=== PATIENT | female | born 1930 | race Caucasian/White ===

== ENCOUNTER 2017-06-28 13:40 | Emergency (ER) | payer OTHER ==
[~2017-06-28] VITALS: Ht 165.1 cm; Wt 61.2 kg
[~2017-06-28 13:40] MED LIST: APAP500 PO; ARICEPT10 M1 PO; COZAAR 25 MG TA25 M1 PO; FISH OIL 1,2001 EAC4 PO; KEFLEX500 MG PO; ONDANSETRON HCL4 M2 PO; ZOCOR20 MG PO; ZOFRAN ODT4 MG PO; ZOLOFT50 MG PO
[2017-06-28] MEDS ORDERED: ASPIR 8181 M1 PO (13:53)
[2017-06-28] MEDS ORDERED: SYNTHROID50 MCG PO (13:54)
[2017-06-28] MEDS ORDERED: STOOL SOFTENER100 MG PO (13:54)
[2017-06-28 14:17] LABS: HEMATOCRIT 38.5 % (37.0-47.0); HEMOGLOBIN 12.6 gm/dL (12.0-15.0); MCH 27.9 pg (26.0-34.0); MCHC 32.6 g/dL (28.0-37.0); MCV 85.4 fL (80.0-100.0); MPV 7.3 fl. (7.2-11.1); NUCLEATED RBCS 0 /100WBC; PLATELET COUNT* 400 thou/uL (150-400); RBC 4.51 mil/uL (4.20-5.00); WBC 16.4 thou/uL (4.0-11.0)
[2017-06-28 14:23] LABS: CALCIUM 8.9 mg/dL (8.5-10.1); CREATININE 1.2 mg/dL (0.6-1.3); POTASSIUM 3.4 mmol/L (3.5-5.1)
[2017-06-28 14:33] LABS: ALBUMIN 2.9 g/dL (3.4-5.0); TOTAL BILIRUBIN 0.6 mg/dL (<0.1-1.0); TOTAL PROTEIN 6.6 g/dL (6.4-8.2)
[2017-06-28 15:03] LABS: ABSOLUTE LYMPHOCYTES 0.5 thou/uL (0.8-5.3); ABSOLUTE MONOCYTES 0.5 thou/uL (0.0-1.2); ABSOLUTE NEUTROPHILS 15.4 thou/uL (1.6-8.1)
[2017-06-28 15:04] LABS: PLATELET ESTIMATE ADEQUATE
[2017-06-28 15:08] LABS: MACROCYTES Occasional
[2017-06-28 15:15] LABS: URINE BILIRUBIN NEGATIVE (Negative); URINE BLOOD TRACE (Negative); URINE COLOR YELLOW; URINE GLUCOSE-RANDOM NEGATIVE (Negative); URINE KETONES NEGATIVE (Negative); URINE LEUKOCYTES-REFLEX 2+ (Negative); URINE NITRITE-REFLEX NEGATIVE (Negative); URINE PROTEIN TRACE (Negative); URINE UROBILINOGEN 0.2 E.U./dl (0.2-1.0)
[2017-06-28 15:16] LABS: URINE CLARITY SL HAZY
[2017-06-28 15:22] LABS: SQUAMOUS 0-3 Few /LPF (0-3); WBC CLUMPS Moderate (None Seen)
[2017-06-28 15:23] LABS: BACTERIA-REFLEX >30 Many /HPF (None Seen); CASTS None Seen /LPF (None Seen); CRYSTALS None Seen /LPF (None Seen); MUCUS None Seen strn/LPF (None Seen); URINE RBC 0-2 Rare /HPF (0-2); URINE WBC-REFLEX 6-15 Few /HPF (0-5)
[2017-06-28] MEDS ORDERED: MIRALAX17 G1 PO (15:55)
[2017-06-28] MEDS ORDERED: MACRODANTIN100 MG PO (15:55)
[2017-06-28] MEDS ORDERED: MILK OF MA2400 MG/10 PO (15:55)
[2017-06-28] MEDS ORDERED: KLOR-CON 1010 MEQ PO (16:11)
[2017-06-28 16:52] VITALS: BP 116/63
== END 2017-06-28 16:52 ==
LOC: M.ERS 13:40
PROVIDERS: Nurse Practitioner Family
DX: K59.00 Constipation, unspecified (principal); N39.0 Urinary tract infection, site not specified; E87.6 Hypokalemia; I10 Essential (primary) hypertension; E03.9 Hypothyroidism, unspecified; E78.5 Hyperlipidemia, unspecified; F03.90 Unspecified dementia, unspecified severity, without behavioral disturbance, psychotic disturbance, mood disturbance, and anxiety